=== PATIENT | female | born 1995 ===

== ENCOUNTER → 2018-04-23 | Outpatient (CLI) | payer SELFPAY | END | disposition home or self-care (01) | LOC: PLD 08:02 → LAB SHORT 08:02 | DX: D22.5 Melanocytic nevi of trunk (principal) | CPT/HCPCS: 88305 ==

== ENCOUNTER 2021-08-03 13:12 | Emergency (ER) | payer OTHER ==
[~2021-08-03] VITALS: Ht 170.2 cm; Wt 136.1 kg
[2021-08-03] MEDS ORDERED: ONDA4 PO (15:32)
[2021-08-03] MEDS ORDERED: Norco 5-325 Ta1 EACH PO (15:32)
== END 2021-08-03 15:34 | disposition home or self-care (01) ==
LOC: ER 13:12
DX: T22.212A Burn of second degree of left forearm, initial encounter (principal); T22.211A Burn of second degree of right forearm, initial encounter; T23.202A Burn of second degree of left hand, unspecified site, initial encounter; Z23 Encounter for immunization; X08.8XXA Exposure to other specified smoke, fire and flames, initial encounter
CPT/HCPCS: 16025; 90471; 90714; 99283-25; A9270